=== PATIENT | female | born 1985 | race Caucasian/White ===

== ENCOUNTER 2017-05-05 14:25 | Emergency (ER) | payer OTHER, MEDICAID ==
[2017-05-05] MEDS ORDERED: Ondansetron 4 MG Tab.DIS PO ONE (14:44)
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
[2017-05-05 15:19] VITALS: BP 152/94
[2017-05-05] MEDS ORDERED: Naproxen 500 MG Tab PO ONE (15:21)
== END 2017-05-05 15:35 | disposition home or self-care (01) ==
LOC: VM.ED 14:25
DX: S50.812A Abrasion of left forearm, initial encounter (principal); S50.811A Abrasion of right forearm, initial encounter; J45.909 Unspecified asthma, uncomplicated; K21.9 Gastro-esophageal reflux disease without esophagitis; E66.9 Obesity, unspecified; M19.90 Unspecified osteoarthritis, unspecified site; F41.9 Anxiety disorder, unspecified; Z88.1 Allergy status to other antibiotic agents; Z68.44 Body mass index [BMI] 60.0-69.9, adult; V40.9XXA Unspecified car occupant injured in collision with pedestrian or animal in traffic accident, initial encounter; Y92.411 Interstate highway as the place of occurrence of the external cause
CPT/HCPCS: 71020; 99284; A9270